=== PATIENT | male | born 1990 | race Caucasian/White ===

== ENCOUNTER 2017-09-12 02:41 | Emergency (ER) | payer SELFPAY ==
[~2017-09-12] VITALS: Ht 175.3 cm; Wt 86.2 kg
--- NOTE | 2017-09-12 02:41 | NUR ---
PATIENT BIB [facility] TO [facility]
[2017-09-12 02:43] VITALS: BP 123/91
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
[2017-09-12 03:13] VITALS: BP 123/91
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
== END 2017-09-12 03:13 ==
LOC: MED 02:41
DX: S60.312A Abrasion of left thumb, initial encounter (principal); R03.0 Elevated blood-pressure reading, without diagnosis of hypertension; V47.5XXA Car driver injured in collision with fixed or stationary object in traffic accident, initial encounter; Y93.89 Activity, other specified; Y92.488 Other paved roadways as the place of occurrence of the external cause; Y99.8 Other external cause status
CPT/HCPCS: 99283